=== PATIENT | male | born 1955 | race Caucasian/White ===

== ENCOUNTER 2016-11-19 08:40 | Day surgery (SDC) | payer OTHER ==
[~2016-11-19] VITALS: Ht 165.1 cm; Wt 77.1 kg
[2016-11-19] MEDS ORDERED: ASPIRIN PO (09:46)
[2016-11-19] MEDS ORDERED: ZANTAC PO (09:46)
[2016-11-19] MEDS ORDERED: METFORMIN PO (09:46)
[2016-11-19] MEDS ORDERED: STATIN PO (09:46)
[2016-11-19 09:55] VITALS: Ht 165.1 cm; Wt 77.1 kg
[2016-11-19] MEDS ORDERED: FENTAnyl 50 MCG/ML VIAL ONE (10:02)
[2016-11-19] MEDS ORDERED: MIDAZOLAM 1 MG/ML 2 ML INJ ONE (10:02)
[2016-11-19] MEDS ORDERED: PROPOFOL 20 ML ONE (10:02)
[2016-11-19 10:07] VITALS: BP 138/78; PULSE 88; RESP 16
--- NOTE | 2016-11-19 10:44 | OPPN ---
Date/Time of Note Date/Time of Note DATE: 11/19/16 TIME: 10:43 Operative Report Preoperative Diagnosis Chronic heartburn, screening colonoscopy Postoperative Diagnosis Same Operation/Procedure Performed 1. Esophageal ulceration at the GE junction also in the distal part of the esophagus 2. Gastritis Colonoscopy Normal all the way into the cecum. Provider: JONG GEORGE MD Anesthesia Type: MAC Estimated blood loss: none Transfusion Required: no Specimen: none Specimens 2 stomach biopsy Grafts/Implants: none Complications: no JONG GEORGE MD Nov 19, 2016 10:44
[2016-11-19 11:08] VITALS: BP 115/77; RESP 25
--- NOTE | 2016-11-19 12:39 | GILP ---
DATE OF PROCEDURE: 11/19/2016 PROCEDURE PERFORMED: Esophagogastroduodenoscopy with biopsy and colonoscopy. INDICATIONS FOR PROCEDURE: The patient is a 61-year-old male undergoing this procedure for chronic heartburn and epigastric pain and colonoscopy for colon cancer screening. The risks of the procedure, related complications, anesthetic risks, alternatives discussed. Informed consent was obtained. DESCRIPTION OF PROCEDURE: The patient was brought to the GI lab, sedated by the anesthesiologist. After optimal sedation, scope was passed with much ease in the esophagus. Patient had a small ulcer, size of a half a centimeter with a crater of 1-2 cm in the distal part of the esophagus. He also had ulceration near the Z- line. Stomach mucosa revealed gastritis. Multiple biopsies taken to rule out H pylori infection. Duodenum, 1st and 2nd part including ampulla appeared normal. Retroversion done. No growth was seen. Scope was straightened out and removed with good patient tolerance. IMPRESSION: 1. Gastritis. 2. Esophageal ulcer LA class D. 3. Normal duodenum and ampulla. PLAN: Start the patient on PPI and review biopsy for H pylori. DESCRIPTION OF PROCEDURE: He was turned around. Digital examination done which was normal. Scope was passed with much ease into rectum, advanced to sigmoid, descending, transverse colon all the way into the cecum. Appendiceal orifice, IC valve identified. While coming out, mucosa thoroughly inspected by rotating the scope in all the directions, it was grossly normal. No growth, no polyp seen. The rest of the colon appeared normal. Small hemorrhoids identified. IMPRESSION: 1. Normal finding all the way into cecum. 2. Small hemorrhoids. PLAN: Stay on high-fiber diet. Dictated By: Gil Felix MD /teresa/mery /Document#: [id number]
== END 2016-11-19 12:44 | disposition home or self-care (01) ==
LOC: GIL 08:40
PROVIDERS: ATTEND Internal Medicine Gastroenterology
DX: Z12.11 Encounter for screening for malignant neoplasm of colon (principal); K22.10 Ulcer of esophagus without bleeding; K29.70 Gastritis, unspecified, without bleeding; K64.9 Unspecified hemorrhoids; E11.9 Type 2 diabetes mellitus without complications; E78.5 Hyperlipidemia, unspecified
CPT/HCPCS: 43239; 45378; 82962; 88305; 88312; J2250; J3010; Z7610